=== PATIENT | male | born 1960 | race Caucasian/White ===

== ENCOUNTER 2020-03-20 12:21 | Inpatient (IN) | payer MEDICAID, OTHER ==
[~2020-03-20] VITALS: Ht 167.6 cm; Wt 77.1 kg
[2020-03-20] MEDS ORDERED: CARV25TA47 PO ×2 (12:35→18:20)
[2020-03-20] MEDS ORDERED: ATOR40TA70 PO ×2 (12:36→18:21)
[2020-03-20] MEDS ORDERED: OLME40TA18 PO ×2 (12:36→18:22)
[2020-03-20] MEDS ORDERED: SODIUM CHLORIDE 0.9% 1,000 ML IV ONE (12:55)
[2020-03-20] MEDS ORDERED: ONDANSETRON HCL 4MG/2ML INJ IV ONE (13:00)
[2020-03-20] MEDS ORDERED: GLUCAGON,HUMAN RECOMBINANT 1MG/VIAL IV ONE (13:00)
[2020-03-20 13:11] LABS: BASOPHILS % 0.8 % (0.0-2.0); EOSINOPHILS % 0.7 % (0.0-5.0); HEMATOCRIT. 40.5 % (42.0-52.0); HEMOGLOBIN. 13.9 g/dL (14.0-18.0); LYMPHOCYTES % 27.3 % (20.0-50.0); MEAN CORPUSCULAR HEMOGLOBIN 32.4 pg (28.0-32.0); MEAN CORPUSCULAR VOLUME 94.4 fL (80.0-94.0); MEAN PLATELET VOLUME 7.9 fl (7.4-10.4); MONOCYTES % 8.4 % (2.0-8.0); NEUTROPHILS % 62.8 % (40.0-76.0); PLATELET 266 x1000/uL (130-400); RED BLOOD CELL COUNT 4.29 mill/uL (4.7-6.1); RED CELL DISTRIBUTION WIDTH 12.8 % (11.6-14.6)
[2020-03-20 13:18] LABS: PROTHROMBIN TIME 11.2 sec (9.6-11.0)
[2020-03-20 13:19] LABS: CHLORIDE 101 mEq/L (98-107)
[2020-03-20] MEDS ORDERED: DOCUSATE SODIUM 100MG CAPSULE PO PRN (16:00)
[2020-03-20] MEDS ORDERED: ZOLPIDEM TARTRATE 5MG TABLET PO PRN (16:00)
[2020-03-20] MEDS ORDERED: GUAIFENESIN 200MG/10ML SUGAR FREE UDC PO PRN (16:00)
[2020-03-20] MEDS ORDERED: ONDANSETRON HCL 4MG/2ML INJ IV PRN (16:00)
[2020-03-20] MEDS ORDERED: ACETAMINOPHEN 325MG TABLET PO PRN ×2 (16:00)
[2020-03-20] MEDS ORDERED: NITROGLYCERIN 0.4MG TABLET SL SL PRN (16:00)
[2020-03-20] MEDS ORDERED: CLONIDINE 0.1MG TABLET PO PRN (16:00)
[2020-03-20] MEDS ORDERED: MAGNESIUM/ALUMINUM HYDROXIDE/SIMETHICONE 30ML UDC PO PRN (16:00)
[2020-03-20] MEDS ORDERED: IPRATROPIUM/ALBUTEROL 0.5-3(2.5)MG/3ML NEB ORI PRN (16:00)
[2020-03-20 16:43] LABS: T4 FREE 1.43 ng/dL (0.76-1.46)
[2020-03-20 16:54] LABS: FOLIC ACID (FOLATE) SERUM >20 ng/mL ng/mL (>5.38)
[2020-03-20 17:06] LABS: VITAMIN B12 SERUM 1410 pg/mL (211-911)
[2020-03-20 17:43] VITALS: BP_SYST 134; BP_DIAS 53; BP_DIAS 70
[2020-03-20] MEDS ORDERED: ENOXAPARIN 40MG/0.4ML SYR SUBCUT SCH (18:30)
[2020-03-20] MEDS: ENOXAPARIN 30MG/0.3ML SYR SUBCUT SCH (19:01)
[2020-03-20 20:00] VITALS: BP 119/63
[2020-03-20] MEDS: ASCORBIC ACID 500 MG TABLET PO SCH (21:26)
[2020-03-20] MEDS: FAMOTIDINE 20MG TABLET PO SCH (21:26)
[2020-03-20 23:50] LABS: CLARITY URINE CLEAR (CLEAR); COLOR URINE YELLOW (YELLOW); KETONES URINE NEGATIVE (NEGATIVE); LEUKOCYTE ESTERASE URINE NEGATIVE (NEGATIVE); NITRITE URINE NEGATIVE (NEGATIVE); OCCULT BLOOD URINE NEGATIVE (NEGATIVE); PROTEIN URINE TRACE (NEGATIVE); SPECIFIC GRAVITY URINE 1.019 (1.005-1.030); UROBILINOGEN URINE 0.2 E.U./dL (0.2-1.0)
[2020-03-21] VITALS: BP 111/54
[2020-03-21 00:04] LABS: *BENZODIAZEPINES SCREEN URINE NEGATIVE (NEGATIVE); *COCAINE SCREEN URINE NEGATIVE (NEGATIVE)
[2020-03-21 00:05] LABS: *AMPHETAMINES SCREEN URINE NEGATIVE (NEGATIVE); *BARBITURATES SCREEN URINE NEGATIVE (NEGATIVE); CANNABINOID URINE SCREEN NEGATIVE (NEGATIVE); METHADONE URINE SCREEN NEGATIVE (NEGATIVE); OPIATES URINE SCREEN NEGATIVE (NEGATIVE); PHENCYCLIDINE URINE SCREEN NEGATIVE (NEGATIVE)
[2020-03-21 00:11] LABS: CREATINE KINASE 196 IU/L (39-308)
[2020-03-21 00:16] LABS: CREATINE KINASE MB FRACTION 1.3 ng/mL (0.5-3.6)
[2020-03-21] MEDS: SODIUM CHLORIDE 0.9% 1,000 ML IV SCH ×3 (01:51→21:41)
[2020-03-21 04:00] VITALS: BP 105/52
[2020-03-21 05:44] LABS: BASOPHILS % 0.9 % (0.0-2.0); EOSINOPHILS % 1.5 % (0.0-5.0); HEMATOCRIT. 35.3 % (42.0-52.0); HEMOGLOBIN. 12.1 g/dL (14.0-18.0); MEAN CORPUSCULAR HEMOGLOBIN 32.5 pg (28.0-32.0); MEAN CORPUSCULAR VOLUME 94.6 fL (80.0-94.0); MEAN PLATELET VOLUME 7.8 fl (7.4-10.4); NEUTROPHILS % 42.6 % (40.0-76.0); PLATELET 226 x1000/uL (130-400); RED BLOOD CELL COUNT 3.74 mill/uL (4.7-6.1); RED CELL DISTRIBUTION WIDTH 12.8 % (11.6-14.6)
[2020-03-21 05:48] LABS: CHLORIDE 107 mEq/L (98-107)
[2020-03-21 05:57] LABS: PHOSPHORUS 3.6 mg/dL (2.5-4.9)
[2020-03-21 06:01] LABS: CREATINE KINASE 168 IU/L (39-308)
[2020-03-21 06:02] LABS: CREATINE KINASE MB FRACTION < 1.0 ng/mL (0.5-3.6)
[2020-03-21 08:30] VITALS: BP 129/70
[2020-03-21] MEDS: ASPIRIN 81MG EC TABLET PO SCH (08:47)
[2020-03-21] MEDS: ASCORBIC ACID 500 MG TABLET PO SCH ×2 (08:47→21:40)
[2020-03-21] MEDS: ZINC SULFATE 220 MG ( 50 ) CAPSULE PO SCH (08:47)
[2020-03-21 16:00] VITALS: BP 136/77
[2020-03-21 20:00] VITALS: BP 134/76
[2020-03-21] MEDS: ENOXAPARIN 30MG/0.3ML SYR SUBCUT SCH (21:19)
[2020-03-21] MEDS: FAMOTIDINE 20MG TABLET PO SCH (21:40)
[2020-03-22] VITALS: BP 129/72
[2020-03-22 04:00] VITALS: BP 136/82
[2020-03-22 07:55] LABS: BASOPHILS % 0.9 % (0.0-2.0); EOSINOPHILS % 1.7 % (0.0-5.0); HEMATOCRIT. 34.7 % (42.0-52.0); HEMOGLOBIN. 11.8 g/dL (14.0-18.0); MEAN CORPUSCULAR HEMOGLOBIN 32.5 pg (28.0-32.0); MEAN CORPUSCULAR VOLUME 95.8 fL (80.0-94.0); MEAN PLATELET VOLUME 8.2 fl (7.4-10.4); MONOCYTES % 10.6 % (2.0-8.0); NEUTROPHILS % 36.8 % (40.0-76.0); PLATELET 213 x1000/uL (130-400); RED BLOOD CELL COUNT 3.63 mill/uL (4.7-6.1); RED CELL DISTRIBUTION WIDTH 12.7 % (11.6-14.6)
[2020-03-22 08:00] VITALS: BP 146/81
[2020-03-22 08:23] LABS: CHLORIDE 113 mEq/L (98-107)
[2020-03-22 08:30] LABS: PHOSPHORUS 1.9 mg/dL (2.5-4.9)
[2020-03-22] MEDS: ZINC SULFATE 220 MG ( 50 ) CAPSULE PO SCH (09:54)
[2020-03-22] MEDS: ASPIRIN 81MG EC TABLET PO SCH (09:56)
[2020-03-22] MEDS ORDERED: MAGNESIUM OXIDE 400MG TABLET PO SCH (11:30)
[2020-03-22] MEDS ORDERED: POTASSIUM-SODIUM PHOSPHATE POWDER PACKET PO SCH (11:30)
[2020-03-22 12:00] VITALS: BP 157/72
[2020-03-22 12:03] VITALS: BP 146/81
[2020-03-22] MEDS: ASCORBIC ACID 500 MG TABLET PO SCH (12:22)
== END 2020-03-22 12:50 | disposition home or self-care (01) | DRG 469 ==
LOC: ER 12:21 → 5WST 15:24 → ENRESERV 16:23
PROVIDERS: ADMIT Internal Medicine; ATTEND Internal Medicine
DX: N17.0 Acute kidney failure with tubular necrosis (principal); I95.9 Hypotension, unspecified; E83.42 Hypomagnesemia; E83.39 Other disorders of phosphorus metabolism; E44.1 Mild protein-calorie malnutrition; R55 Syncope and collapse; E83.51 Hypocalcemia; I10 Essential (primary) hypertension; D63.8 Anemia in other chronic diseases classified elsewhere; E78.00 Pure hypercholesterolemia, unspecified; M10.9 Gout, unspecified; Z79.899 Other long term (current) drug therapy; Z68.27 Body mass index [BMI] 27.0-27.9, adult
CPT/HCPCS: 36415; 71045; 76770; 80053; 80061; 80305; 81003; 82550; 82553; 82607; 82746; 83036; 83540; 83550; 83735; 84100; 84439; 84443; 84484; 85025; 93005; 93970; 99285; J1610; J1650; J2405; J7030

== ENCOUNTER 2020-04-28 10:02 | Emergency (ER) | payer MEDICAID ==
[~2020-04-28] VITALS: Ht 167.6 cm; Wt 77.0 kg
[~2020-04-28 10:02] MED LIST: ATOR40TA70 PO; CARV25TA47 PO; OLME40TA18 PO
[2020-04-28 11:34] LABS: CHLORIDE 108 mEq/L (98-107)
[2020-04-28 13:36] VITALS: BP 170/90
== END 2020-04-28 13:39 | disposition home or self-care (01) ==
LOC: ER 10:02
DX: S39.012A Strain of muscle, fascia and tendon of lower back, initial encounter (principal); X50.0XXA Overexertion from strenuous movement or load, initial encounter; Y93.B3 Activity, free weights; Y92.89 Other specified places as the place of occurrence of the external cause; I10 Essential (primary) hypertension; E78.00 Pure hypercholesterolemia, unspecified
CPT/HCPCS: 36415; 80053; 99283